=== PATIENT | female | born 1985 | race Caucasian/White ===

== ENCOUNTER 2022-09-04 09:06 | Emergency (ER) | payer OTHER, SELFPAY ==
--- NOTE | ~2022-09-04 | US_ITS ---
EXAMINATION: US OB <=14 wk fetus w TV DATE: 09/04/2022 11:37 INDICATION: Right pelvic mass. Vaginal bleeding during first trimester of TECHNIQUE: Real-time pelvic ultrasound utilizing both a transvaginal and transabdominal probe was pe rformed. The interpreting radiologist was not present for the study. COMPARISON: None. FINDINGS: The uterus measures 9.2 x 6.1 x 6.8 cm. There is an intrauterine gestational sac. A yolk sac and fet al pole are identified. The crown rump length measures 8 mm, which correlates with an estimated gesta tional age of 6 weeks and 5 days. heart motion is identified measuring 130 beats per minute (bp m) by M-mode Doppler. The right ovary measures 2.9 x 2.0 x 1.9 cm. And 1.0 cm anechoic likely corpus luteum cyst in the rig ht ovary. The left ovary measures 3.2 x 1.6 x 1.8 cm. Vascular flow identified in both ovaries on col or Doppler. A couple anechoic nabothian cysts at the cervix the largest measuring 8mm. There is no fr ee fluid in the pelvis. IMPRESSION: 1. Single living fetus with heart rate of 130 bpm. 2. Gestational age by ultrasound of 6 weeks 5 day(s) +/- 4 day(s) with ultrasound estimated date of delivery (ADOLFO) of 04/25/2023. Reviewed, dictated and finalized at location A. TTING SUPERVISOR IMPRESSION: 1. Single living fetus with heart rate of 130 bpm. 2. Gestational age by ultrasound of 6 weeks 5 day(s) +/- 4 day(s) with ultraso und estimated date of delivery (ADOLFO) of 04/25/2023.
[2022-09-04 09:11] VITALS: BP 178/107; PULSE 133; RESP 14; TEMP 36.7; O2SAT 100
--- NOTE | 2022-09-04 09:27 | ED.ABDPAIN ---
HPI - Abdominal Pain General Chief Complaint: Abdominal Pain Stated Complaint: bleeding, ivf, possible ectopic Time Seen by Provider: 09/04/22 09:16 History of Present Illness HPI narrative: Patient is a who is currently 7 weeks female here for evaluation of right-sided pelvic pain and vaginal bleeding. Patient states that yesterday she felt a gush of blood come out of her vagina. Since then, she has had some right-sided pelvic cramping and pain. She denies continued vaginal bleeding since the initial incident. She is currently via IVF from a facility in [place]. Denies nausea, vomiting, lightheadedness, syncope, diarrhea or constipation. Related Data Allergies Allergy/AdvReac Type Severity Reaction Status Date / Time No Known Allergies Allergy Unverified 10/28/18 14:31 Review of Systems Review of Systems: Gen.: Denies fevers or chills Eyes: Denies eye pain or visual change ENT: Denies congestion Respiratory: Denies shortness of breath or cough CV: Denies chest pain or palpitations GI: Reports abdominal pain. Denies nausea, emesis or diarrhea reports vaginal bleeding. Denies burning, urgency, frequency or hematuria Musculoskeletal: Denies back pain or muscle pain Neuro: Denies numbness, tingling, weakness or focal weakness Skin: Denies rash Except as documented, all other systems reviewed and negative Exam Narrative: APPEARANCE: Well appearing, no pain in distress, well-nourished. Head: Normocephalic and atraumatic. EYES: PERRLA/EOMI, conjunctivae clear NOSE: No nasal drainage EARS: External ear normal in appearance THROAT: Oropharynx is clear. Mucous membranes are moist. NECK: Supple. No adenopathy, no masses. : Cervical os is closed. No vaginal bleed noted. No cervical motion tenderness. RESPIRATORY: Airway patent, respirations nonlabored. Clear to auscultation bilaterally, no rales, rhonchi, wheezing. CARDIOVASCULAR: Regular rate and rhythm without murmurs, rubs, or gallops. ABDOMINAL: Normoactive bowel sounds. Soft, nontender, nondistended. No rebound tenderness or guarding. MUSCULOSKELETAL: Extremities are warm and well-perfused. Moves all extremities well. No edema. NEURO: Normal speech. No focal neurologic deficits. SKIN: Skin is warm and dry. No rashes. PSYCHIATRIC: Normal affect/mood. Course Vital Signs Vital signs: Vital Signs Temperature 98.0 F 09/04/22 09:11 Pulse Rate 133 H 09/04/22 09:11 Respiratory Rate 14 09/04/22 09:11 Blood Pressure 178/107 H 09/04/22 09:11 Pulse Oximetry 100 09/04/22 09:11 Temperature 98.0 F 09/04/22 09:11 Pulse Rate 133 H 09/04/22 09:11 Respiratory Rate 14 09/04/22 09:11 Blood Pressure 152/103 H 09/04/22 12:37 Pulse Oximetry 100 09/04/22 12:37 MDM - Abdominal Pain MDM Narrative Medical decision making narrative: Patient is a 36-year-old female here for evaluation of pelvic pain and vaginal bleeding, currently about 7 weeks female via IVF. Patient does have some abdominal pain on exam but her cervical os is closed and she has no active bleeding noted. Serum quant is 18,000 which is up from her previous level according to patient. OB ultrasound reveals a single live intrauterine gestation. her blood type is B+ so no need for RhoGAM. Spoke with patient's METAL GRADER on the phone who agrees with plan for outpatient follow-up and management. Patient was given return precautions and she voiced understanding. Lab Data 09/04/22 09:40 Labs: Lab Results 09/04/22 09/04/22 09/04/22 Range/Units 09:40 09:40 09:40 Sodium 139 (137-145) mmol/L Potassium 4.1 (3.4-5.0) mmol/L Chloride 110 H (98-107) mmol/L Carbon Dioxide 21 L (22-30) mmol/L Anion Gap 8 (8-16) mmol/L BUN 12 (7-17) mg/dL Creatinine 0.80 (0.7-1.0) mg/dL Estim Creat Clear Calc 95 ml/min Estimated GFR > 60 (59 - ) Glucose 98 (65-110) mg/dL Calcium 9.3 (8.4-10.2) mg/dL To
[2022-09-04 09:40] VITALS: BP 161/94; O2SAT 100
[2022-09-04 10:04] LABS: Alanine Aminotransferase 18 U/L (6-35); Albumin Level 4.7 g/dL (3.5-5.1); Alkaline Phosphatase 53 U/L (38-126); Anion Gap 8 mmol/L (8-16); Aspartate Amino Transferase 21 U/L (14-36); Bilirubin,Total 0.4 mg/dL (0.2-1.3); Blood Urea Nitrogen 12 mg/dL (7-17); Calcium 9.3 mg/dL (8.4-10.2); Carbon Dioxide 21 mmol/L (22-30); Chloride 110 mmol/L (98-107); Estimated CRCL calculation 95 ml/min; Estimated Glomerular Filt Rate > 60; Glucose 98 mg/dL (65-110); Lipase 157 U/L (23-300); Potassium 4.1 mmol/L (3.4-5.0); Sodium 139 mmol/L (137-145)
[2022-09-04 10:05] LABS: Add Urine Microscopic? YES; Appearance Urine Slightly Cloudy (Clear); Bilirubin Urine Negative (Negative); Blood Urine 2+ (Negative); Color Urine Light Yellow (Yellow); Glucose Urine UA Negative (Negative); Ketones Urine Negative (Negative); Leukocyte Esterase Ur Negative LEU/UL (Negative); Nitrate Urine Negative (Negative); Protein Urine Negative (Negative); Urobilinogen Urine 0.2 mg/dL (<2.0)
[2022-09-04 10:16] LABS: Bacteria Urine 1+ /hpf; Squamous Epithelial Cell Urine Many /hpf (Few)
[2022-09-04 12:35] VITALS: BP 156/101; O2SAT 100
[2022-09-04 12:37] VITALS: BP 152/103; O2SAT 100
== END 2022-09-04 12:45 | disposition home or self-care (01) ==
PROVIDERS: Emergency Provider Physician Assistant
DX: O26.891 Other specified pregnancy related conditions, first trimester (principal); R10.9 Unspecified abdominal pain; Z3A.01 Less than 8 weeks gestation of pregnancy
CPT/HCPCS: 36415; 76801; 76817; 80053; 81001; 83690; 84702; 85461; 86850; 86900; 86901; 87077; 87086; 87088; 99284